=== PATIENT | male | born 1955 | race Caucasian/White ===

== ENCOUNTER 2018-06-12 09:37 | Inpatient (IN) ==
--- NOTE | 2018-06-12 10:11 | Emergency Department Note ---
ED Disposition Clinical Impression: COPD (chronic obstructive pulmonary disease) with acute bronchitis, Acute exacerbation of chronic obstructive airways disease, Hyponatremia Disposition: Admitted as Observation Condition on Discharge: Good Referrals: Elliott Stinson [Primary Care Provider] - Jamel Morin MD [Staff Physician] - - Critical Care Critical Care Time: No Attestation: On , the high probability of a clinically significant, sudden or life threatening deterioration of the following system(s) required my full and direct attention, intervention and personal management. The time I documented below is in addition to time spent performing reported procedures but includes the following listed in this critical care notation. Medical Decision Making - Ricco Inquiry Pt receiving controlled substance: No Ricco was queried for this patient: No Vital Signs: 06/12/18 09:48 06/12/18 10:30 06/12/18 10:38 Temperature 97.9 F Temperature Source Oral Pulse Rate 125 H Pulse Rate [Left Radial] 120 H Respiratory Rate 40 H Blood Pressure [Right Arm] 150/100 H 135/91 H Blood Pressure Mean [Right Arm] 116 105 Blood Pressure Source [Right Arm] Automatic Cuff Automatic Cuff Blood Pressure Position [Right Arm] Sitting 02 Sat by Pulse Oximetry 92 L 98 Oxygen Delivery Method Room Air Nasal Cannula Oxygen Flow Rate (LPM) 2 06/12/18 11:00 06/12/18 11:12 06/12/18 11:16 Temperature Temperature Source Pulse Rate Pulse Rate [Left Radial] 115 H Respiratory Rate 42 H Blood Pressure [Right Arm] 133/87 Blood Pressure Mean [Right Arm] 102 Blood Pressure Source [Right Arm] Automatic Cuff Blood Pressure Position [Right Arm] Sitting 02 Sat by Pulse Oximetry 97 94 L Oxygen Delivery Method Room Air Oxygen Flow Rate (LPM) - Lab Data Lab Results 06/12/18 09:52: WBC 7.0, RBC 4.91, Hgb 16.4, Hct 49.2, MCV 100.1 H, MCH 33.3 H, MCHC 33.3, RDW 12.9, Plt Count 231, MPV 8.3, Neut % (Auto) 74.0, Lymph % (Auto) 9.2 L, [place] % (Auto) 15.5 H, Eos % (Auto) 0.7, Baso % (Auto) 0.6, Neut # (Auto) 5.2, Lymph # (Auto) 0.6 L, [place] # (Auto) 1.1 H, Eos # (Auto) 0.1, Baso # (Auto) 0.0 06/12/18 09:52: Sodium 128 L, Potassium 4.2, Chloride 92 L, Carbon Dioxide 24, Anion Gap 16.2 H, BUN 9, Creatinine 0.73, Estimated Creat Clear 72, Estimated GFR 108, Est GFR ( Amer) 131, Glucose 129 H, Calcium 9.2, Troponin I < 0.02 06/12/18 09:52: Lactate 1.6 06/12/18 10:01: Specimen Source Right radial, O2 % 2lpm nc, ABG pH 7.44, ABG pCO2 34.3 L, ABG pO2 128.7 H, ABG HCO3 22.6, ABG Total CO2 23.7, ABG O2 Sa turation 99, ABG Base Excess -1.6, Wes Test Acceptable Result diagrams: 06/12/18 09:52 06/12/18 09:52 Orders (Tests/Meds): ED MEDICATIONS Generic Name Dose Route Start Last Admin Trade Name Freq PRN Reason Stop Dose Admin Acetaminophen 650 mg 06/12/18 12:06 Acetaminophen 325mg Tab PO 07/12/18 12:05 Q4HP PRN As Needed for Fever or Pain Atorvastatin Calcium 20 mg 06/13/18 09:00 Lipitor 20mg Tablet PO 07/13/18 08:59 DAILY NATALIYA Sodium Chloride 1,000 mls @ 125 mls/hr 06/12/18 12:15 Sod Chlor 0.9% 1000ml Bag IV 07/12/18 12:14 .Q8H NATALIYA Ondansetron HCl 4 mg 06/12/18 12:06 Zofran 4mg/2ml Vial IV 07/12/18 12:05 Q8HP PRN Nausea Discontinued Medications Generic Name Dose Route Start Last Admin Trade Name Freq PRN Reason Stop Dose Admin Albuterol/Ipratropium 3 ml 06/12/18 09:55 06/12/18 10:30 Duoneb 3ml [facility] 06/12/18 09:56 3 ml ONCE ONE Administration Albuterol/Ipratropium 3 ml 06/12/18 10:47 06/12/18 10:59 Duoneb 3ml [facility] 06/12/18 10:48 3 ml ONCE ONE Administration Prednisone 80 mg 06/12/18 10:20 06/12/18 10:46 Deltasone 20mg Tablet PO 06/12/18 10:21 80 mg ONCE ONE Administration ORDERS Category Date Time Status Influenza A&B Antigens, Rapid [Rapid Influenza A&B Lab 06/12/18 11:27 Ordered Antigens] Stat Blood Culture Stat Micro 06/12/18 09:52 Received General Adult HPI - General Chief complaint: Shortness of Breath/Dyspnea Stated complaint: SOA,Dehydration Time Seen by Provider: 06/12/18 10:00 Mode of Arrival: Ambulatory Limitations: No Limitations Description of Symptoms (Recalled from ER Triage Doc. by RN): to ed pt sent from dr stinson's office for eval due to sob. pt c/o sob starting approx 1 week ago progressively getting worse. +cough with yellow sputum and chest tightness. cpta none - History of Present Illness HPI narrative: cold symptoms x one week, now progressively worsening with chest symptoms. No fever, hemoptysis, but relates to purulent sputum. History of recurrent bronchitis, heavy smoking history, no hospitalizations he recalls for pneumonia. Onset (ago): week(s) (one) Location: head, chest Severity: moderate Relieving factors: none Exacerbating factors: none Associated symptoms: denies other symptoms, fever/chills, loss of appetite, malaise, shortness of breath. negative: headaches, syncope - Related Data Home Medications Medication Instructions Recorded Confirmed Atorvastatin Calcium [Atorvastatin 20 mg PO DAILY 06/12/18 06/12/18 20mg Tab] Lisinopril [Lisinopril 10mg Tab] 10 mg PO DAILY 06/12/18 06/12/18 Trazodone HCl 50 mg PO HS 06/12/18 06/12/18 Allergies Allergy/AdvReac Type Severity Reaction Status Date / Time cortisone [CORTISONE] Allergy Intermediate I-HIVES Verified 06/12/18 09:52 [facility] History I have reviewed the patient's past medical history: Yes - Social History Smoking Status: Current every day smoker Tobacco Type: cigarettes Alcohol Intake: never - Psychiatric History Expresses thoughts of harming self/others: None Suicide Plan Description: No Plan ROS Obtained: Yes All systems reviewed & no additional complaints - Constitutional Constitutional: Reports system reviewed and no additional complaints, except as docu, Reports body ache, Reports poor appetite, Reports lethargy, Reports malaise - Eyes Eyes: Reports system reviewed and no additional complaints, except as docu - ENT Ears, Nose, Mouth, and Throat: Reports system reviewed and no additional complaints, except as docu, Reports post nasal drip, Reports sinus pressure - Cardiovascular Cardiovascular: Reports system reviewed and no additional complaints, except as docu - Respiratory Respiratory: Yes chest congestion, Yes cough, Yes dyspnea, Yes dyspnea on exertion, Yes pain with cough - Gastrointestinal Gastrointestingal: Reports: system reviewed and no additional complaints, except as docu - Musculoskeletal Musculoskeletal: Reports system reviewed and no additional complaints, except as docu, Denies joint swelling, Denies muscle cramps - Integumentary/Breasts Skin/Breast: Reports system reviewed and no additional complaints, except as docu - Neurologic Neurologic: Reports system reviewed and no additional complaints, except as docu, Denies focal weakness, Denies syncope - Hematologic/Lymphatic Henatologic/Lymphatic: Reports system reviewed and no additional complaints, except as docu Physical Exam - General General appearance: alert, in distress, other (mild to moderate respiratory distress, speaks full sentences however) - Head Head exam: atraumatic - Eye Eye exam: Present: normal appearance - ENT ENT exam: Present: normal exam, normal oropharynx - Neck Neck exam: Present: normal inspection, full ROM - Chest Chest inspection: Present: symmetric chest wall rise - Respiratory Respiratory exam: Present: respiratory distress, wheezes, other (moderate diffuse wheezes, equal bilateral BS, no egophony) - Cardiovascular Cardiovascular exam: Present: regular rate, normal rhythm - Abdominal Exam Abdominal exam: Present: soft, normal bowel sounds. Absent: tenderness, guarding - Neurological Exam Neurological exam: Present: alert, oriented X3, CN II-XII intact - Skin Skin exam: Present: warm, dry, intact, normal color. Absent: rash, cyanosis, diaphoresis
[2018-06-12 10:15] LABS: Basophils % 0.6 % (0.1-2.0); Eosinophils # 0.1 K/mm3 (0.0-0.4); Eosinophils % 0.7 % (0.1-12.0); Hematocrit 49.2 % (42.0-52.0); Hemoglobin 16.4 g/dL (14.1-18.0); Lymphocytes # 0.6 K/mm3 (0.7-4.5); Lymphocytes % 9.2 % (10-50); Mean Corpuscular HGB Conc 33.3 g/dL (31.8-35.4); Mean Corpuscular Hemoglobin 33.3 pg (27.0-31.2); Mean Corpuscular Volume 100.1 fl (80-94); Mean Platelet Volume 8.3 fl (7.4-10.4); Monocytes # 1.1 K/mm3 (0.1-1.0); Monocytes % 15.5 % (1.7-9.3); Neutrophils # 5.2 K/mm3 (1.8-7.8); Platelet Count 231 K/mm3 (142-424); Red Blood Count 4.91 M/mm3 (4.60-6.20); Red Cell Distribution Width 12.9 % (11.5-17.5)
[2018-06-12 10:22] LABS: Anion Gap 16.2 mEq/L (5-15); Blood Urea Nitrogen 9 mg/dL (7-18); Calcium 9.2 mg/dL (8.5-10.1); Carbon Dioxide 24 mmol/L (21.0-32.0); Chloride 92 mmol/L (98-107); Glucose 129 mg/dL (74-106); Potassium 4.2 mmoL/L (3.5-5.1); Sodium 128 mmol/L (136-145)
[2018-06-12 10:33] LABS: ABG Base Excess -1.6 mmol/L (-2.4-2.3); ABG HCO3 22.6 mmhg (22.0-26.0); ABG Oxygen Saturation 99 % (90-100); ABG PCO2 34.3 mmhg (35.0-45.0); ABG PH 7.44 mmol/L (7.35-7.45); ABG PO2 128.7 mmhg (80-100); ABG TCO2 23.7 mmhg (23-27)
[2018-06-12 10:36] LABS: Allen's Test Acceptable; Oxygen 2lpm nc %
--- NOTE | 2018-06-12 14:08 | Pharmacy Consult Notes ---
[facility] Pharmacy VTE Monitoring - Patient Demographics Admission date: 06/12/18 Report Date: 06/12/18 Time: 14:07 Allergies/Adverse Reactions: Patient Allergies cortisone [CORTISONE] Allergy (Intermediate, Verified 06/12/18 09:52) I-ALBERT Height: 1.73 m Weight: 65.969 kg Patient Problems: Current Active Problems COPD (chronic obstructive pulmonary disease) with acute bronchitis (Acute) Acute exacerbation of chronic obstructive airways disease (Acute) Hyponatremia (Acute) - VTE Risk Labs: VTE Related Lab Results Hgb 16.4 g/dL (14.1-18.0) 06/12/18 09:52 Hct 49.2 % (42.0-52.0) 06/12/18 09:52 Plt Count 231 K/mm3 (142-424) 06/12/18 09:52 BUN 9 mg/dL (7-18) 06/12/18 09:52 Creatinine 0.73 mg/dL (0.70-1.30) 06/12/18 09:52 Estimated Creat Clear 72 mL/min (50-200) 06/12/18 09:52 Was VTE Risk Assessment Performed: Yes VTE Score: 3 VTE Risk Level: Low Risk Clinical Trial Participant: No - Prophylaxis VTE Prophylaxis Ordered?: Yes Types of VTE Prophylaxis: TEDS Knee High Location of Applied Device: Not Applicable
--- NOTE | 2018-06-12 17:41 | History & Physical Report ---
*Admission Date: 06/12/18 *Chief complaint: Cough and shortness of air *History of present illness: 63-year-old white male with history of COPD, secondary to tobacco use disorder, who has frequent exacerbations and is usually treated with intramuscular antibiotics and steroids. He began to be sick over the weekend but did not want to go to the doctor, and as a result did not get any kind of antibiotics or steroid therapy but became progressively more dyspneic and came to the emergency department earlier today. He was found to be dyspneic, wheezing, found to have significant COPD exacerbation that did not improve with supportive care in the emergency department. He is admitted to hospital because of multiple comorbid conditions and COPD exacerbation. [facility] History I have reviewed the patient's past medical history: Yes Medical History: Reports:: Hyperlipidemia, Hypertension Denies:: Cancer, Diabetes Mellitus Type 1, Diabetes Mellitus Type 2, Internal Pacemaker, MRSA Other Medical History: Reports: Sinus Problems Other Surgeries: No: Pacemaker Amputation: No Fractures: No - *Social History Educational Level: Attended College Smoking Status: Former smoker Tobacco Type: cigarettes Smoking End Date: 2017 Alcohol Intake: current Alcohol Intake Frequency:: 3 or more drinks per day Occupational Status: previously employed Housing: house Household Members: spouse - Psychiatric History Expresses thoughts of harming self/others: None Suicide Plan Description: No Plan *Family Hx:: Cancer, Hyperlipidemia, Hypertension Review of Systems - Review of Systems Review of systems:: pertinent systems reviewed and negative unless documented below - Constitutional Reports anorexia, Reports chills, Reports lack of energy - ENT Denies abnormal hearing, Denies bleeding gums, Denies difficulty swallowing - *Cardiovascular Reports shortness of breath, Reports shortness of breath with activity, Denies chest pain, Denies excessive sweating, Denies irregular heart rhythm, Denies leg swelling, Denies shortness of breath when lying down - *Respiratory Reports change in phlegm color, Reports chest congestion, Reports cough, Reports excessive phlegm production, Denies coughing up blood - *Gastrointestinal Denies abdominal pain, Denies difficulty swallowing, Denies feeling full early - *Genitourinary Denies difficulty urinating - *Musculoskeletal Reports abnormal walking, Denies decreased muscle mass, Denies back pain - *Neurologic Denies localized weakness, Denies fainting Meds Home Medications Medication Instructions Recorded Confirmed Type Atorvastatin Calcium [Atorvastatin 20 mg PO DAILY 06/12/18 06/12/18 History 20mg Tab] Lisinopril [Lisinopril 10mg Tab] 10 mg PO DAILY 06/12/18 06/12/18 History Trazodone HCl 50 mg PO HS 06/12/18 06/12/18 History Allergies Allergy/AdvReac Type Severity Reaction Status Date / Time cortisone [CORTISONE] Allergy Intermediate I-HIVES Verified 06/12/18 09:52 Exam Vital signs and Labs for Last 24 Hours: Temp Pulse Resp BP Pulse Ox 98.4 F 95 H 20 149/94 H 92 L 06/12/18 13:14 06/12/18 14:12 06/12/18 14:10 06/12/18 13:14 06/12/18 14:12 Laboratory Results - last 24 hr 06/12/18 09:52: WBC 7.0, RBC 4.91, Hgb 16.4, Hct 49.2, MCV 100.1 H, MCH 33.3 H, MCHC 33.3, RDW 12.9, Plt Count 231, MPV 8.3, Neut % (Auto) 74.0, Lymph % (Auto) 9.2 L, [place] % (Auto) 15.5 H, Eos % (Auto) 0.7, Baso % (Auto) 0.6, Neut # (Auto) 5.2, Lymph # (Auto) 0.6 L, [place] # (Auto) 1.1 H, Eos # (Auto) 0.1, Baso # (Auto) 0.0 06/12/18 09:52: Sodium 128 L, Potassium 4.2, Chloride 92 L, Carbon Dioxide 24, Anion Gap 16.2 H, BUN 9, Creatinine 0.73, Estimated Creat Clear 72, Estimated GFR 108, Est GFR ( Amer) 131, Glucose 129 H, Calcium 9.2, Troponin I < 0.02 06/12/18 09:52: Lactate 1.6 06/12/18 10:01: Specimen Source Right radial, O2 % 2lpm nc, ABG pH 7.44, ABG pCO2 34.3 L, ABG pO2 128.7 H, ABG HCO3 22.6, ABG Total CO2 23.7, ABG O2 Saturation 99, ABG Base Excess -1.6, Wes Test Acceptable I & O for Last 24 hours: Intake & Output 06/10/18 06/11/18 06/12/18 06/13/18 11:59 11:59 11:59 11:59 Intake Total 360 / 360 Balance 360 / 360 Weight 150 lb 145 lb 7 oz Narrative: Patient appears markedly older than his stated age, appears cachectic. Heavily bearded. Oropharynx dry but otherwise clear, no JVD. Lungs have crackles and rhonchi especially in the right middle and lower lung fi eld. Abdomen soft and nontender. Heart rate regular. No edema. Clubbing noted, no cyanosis. Patient is alert, oriented x3. Very pleasant and talkative. Assessment and Plan (1) Protein-calorie malnutrition, mild Current visit: Yes Status: Acute Category: Medical Code(s): E44.1 - Mild protein-calorie malnutrition Supportive care in hospital, this complicates his care. (2) Acute exacerbation of chronic obstructive airways disease Current visit: Yes Status: Acute Category: Medical Code(s): J44.1 - Chronic obstructive pulmonary disease with (acute) exacerbation Patient clearly has exacerbation of significant lung disease. I am very suspicious of a bacterial pathogen given his sputum production, add ceftriaxone/azithromycin therapy. (3) COPD (chronic obstructive pulmonary disease) with acute bronchitis Current visit: Yes Status: Acute Category: Medical Code(s): J44.0 - Chronic obstructive pulmonary disease with acute lower respiratory infection; J20.9 - Acute bronchitis, unspecified Treat as noted above, agree with IV steroids and nebulizers (4) Hyponatremia Current visit: Yes Status: Acute Category: Medical Code(s): E87.1 - Hypo- osmolality and hyponatremia Rehydrate. Follow labs tomorrow
[2018-06-13 06:45] LABS: Basophils % 0.1 % (0.1-2.0); Eosinophils % 0.5 % (0.1-12.0); Hematocrit 41.6 % (42.0-52.0); Lymphocytes # 0.4 K/mm3 (0.7-4.5); Mean Corpuscular HGB Conc 32.5 g/dL (31.8-35.4); Mean Corpuscular Hemoglobin 32.4 pg (27.0-31.2); Mean Corpuscular Volume 99.9 fl (80-94); Mean Platelet Volume 7.3 fl (7.4-10.4); Monocytes # 0.4 K/mm3 (0.1-1.0); Monocytes % 7.1 % (1.7-9.3); Neutrophils # 4.6 K/mm3 (1.8-7.8); Neutrophils % 84.2 % (37.0-80.0); Platelet Count 213 K/mm3 (142-424); Red Blood Count 4.16 M/mm3 (4.60-6.20); Red Cell Distribution Width 12.8 % (11.5-17.5); White Blood Count 5.5 K/mm3 (4.8-10.8)
[2018-06-13 07:01] LABS: Albumin Level 2.8 gm/dL (3.4-5.0); Albumin/Globulin Ratio 0.7 (1.1-1.8); Anion Gap 11.6 mEq/L (5-15); Bilirubin,Total 0.5 mg/dL (0.2-1.0); Calcium 8.3 mg/dL (8.5-10.1); Globulin 4.1 gm/dl (1.3-3.2); Potassium 3.6 mmoL/L (3.5-5.1); Total Protein,Serum 6.9 gm/dL (6.4-8.2)
[2018-06-13 07:34] LABS: Hemoglobin 13.2 g/dL (14.1-18.0)
--- NOTE | 2018-06-13 08:14 | Progress Note ---
Internal Medicine - PN: Subj *Date: 06/13/18 *Time: 08:13 Interval history: Patient states that he feels somewhat better. Was able to sleep a couple of hours through the night last night as his coughing improved. Reports sputum production is still an issue. Exam Vital signs and Labs for Last 24 Hours: Temp Pulse Resp BP Pulse Ox 98.7 F 89 20 153/85 H 96 06/13/18 07:28 06/13/18 07:28 06/13/18 04:15 06/13/18 07:28 06/13/18 07:35 Laboratory Results - last 24 hr 06/12/18 09:52: WBC 7.0, RBC 4.91, Hgb 16.4, Hct 49.2, MCV 100.1 H, MCH 33.3 H, MCHC 33.3, RDW 12.9, Plt Count 231, MPV 8.3, Neut % (Auto) 74.0, Lymph % (Auto) 9.2 L, [place] % (Auto) 15.5 H, Eos % (Auto) 0.7, Baso % (Auto) 0.6, Neut # (Auto) 5.2, Lymph # (Auto) 0.6 L, [place] # (Auto) 1.1 H, Eos # (Auto) 0.1, Baso # (Auto) 0.0 06/12/18 09:52: Sodium 128 L, Potassium 4.2, Chloride 92 L, Carbon Dioxide 24, Anion Gap 16.2 H, BUN 9, Creatinine 0.73, Estimated Creat Clear 72, Estimated GFR 108, Est GFR ( Amer) 131, Glucose 129 H, Calcium 9.2, Troponin I < 0.02 06/12/18 09:52: Lactate 1.6 06/12/18 10:01: Specimen Source Right radial, O2 % 2lpm nc, ABG pH 7.44, ABG pCO2 34.3 L, ABG pO2 128.7 H, ABG HCO3 22.6, ABG Total CO2 23.7, ABG O2 Saturation 99, ABG Base Excess -1.6, Wes Test Acceptable 06/13/18 06:22: WBC 5.5, RBC 4.16 L, Hgb 13.2 L D, Hct 41.6 L, MCV 99.9 H, MCH 32.4 H, MCHC 32.5, RDW 12.8, Plt Count 213, MPV 7.3 L, Neut % (Auto) 84.2 H, Lymph % (Auto) 8.0 L, [place] % (Auto) 7.1, Eos % (Auto) 0.5, Baso % (Auto) 0.1, Neut # (Auto) 4.6, Lymph # (Auto) 0.4 L, [place] # (Auto) 0.4, Eos # (Auto) 0.0, Baso # (Auto) 0.0 06/13/18 06:22: Sodium 134 L, Potassium 3.6, Chloride 100, Carbon Dioxide 26, Anion Gap 11.6, BUN 7, Creatinine 0.64 L, Estimated Creat Clear 70, Estimated GFR 126, Est GFR ( Amer) 152, Glucose 151 H, Calcium 8.3 L, Total Bilirubin 0.5, AST 33, ALT 68, Alkaline Phosphatase 65, Total Protein 6.9, Albumin 2.8 L, Globulin 4.1 H, Albumin/Globulin Ratio 0.7 L I & O for Last 24 hours: Intake & Output 06/10/18 06/11/18 06/12/18 06/13/18 11:59 11:59 11:59 11:59 Intake Total 3127 / 3127 Balance 3127 / 3127 Weight 150 lb 145 lb 7 oz Microbiology Reports for the Last 24 Hours: Microbiology 06/12/18 13:30 Sputum - Expectorated Sputum Gram Stain - Final 06/12/18 13:30 Sputum - Expectorated Sputum Sputum Culture - Preliminary Narrative: Patient is pleasant, responds to commands, alert and oriented. lungs have better air entry. Continues to have rhonchi and crackles in the right middle and lower lung field but overall improved. Heart rate regular without murmurs. No edema noted. Abdomen soft and nontender. Able to move all extremities well. Assessment and Plan (1) Protein-calorie malnutrition, mild Current visit: Yes Status: Acute Category: Medical Code(s): E44.1 - Mild protein-calorie malnutrition (2) Acute exacerbation of chronic obstructive airways disease Current visit: Yes Status: Acute Category: Medical Code(s): J44.1 - Chronic obstructive pulmonary disease with (acute) exacerbation (3) COPD (chronic obstructive pulmonary disease) with acute bronchitis Current visit: Yes Status: Acute Category: Medical Code(s): J44.0 - Chronic obstructive pulmonary disease with acute lower respiratory infection; J20.9 - Acute bronchitis, unspecified (4) Hyponatremia Current visit: Yes Status: Acute Category: Medical Code(s): E87.1 - Hypo-osmolality and hyponatremia - Assessment and plan all Dx Assessment and Plan for all problems:: Overall improved. Hyponatremia improving. Leukocytosis has improved. Continue current antibiotics, nebulizers and steroids. Probable discharge tomorrow depending on culture results.
[2018-06-14 07:20] LABS: Hematocrit 37.7 % (42.0-52.0); Lymphocytes # 0.5 K/mm3 (0.7-4.5); Lymphocytes % 7.6 % (10-50); Mean Corpuscular HGB Conc 31.8 g/dL (31.8-35.4); Mean Corpuscular Hemoglobin 32.2 pg (27.0-31.2); Mean Corpuscular Volume 101.3 fl (80-94); Mean Platelet Volume 7.5 fl (7.4-10.4); Monocytes # 0.4 K/mm3 (0.1-1.0); Neutrophils # 5.9 K/mm3 (1.8-7.8); Neutrophils % 86.4 % (37.0-80.0); Platelet Count 178 K/mm3 (142-424); Red Blood Count 3.72 M/mm3 (4.60-6.20); Red Cell Distribution Width 12.7 % (11.5-17.5); White Blood Count 6.9 K/mm3 (4.8-10.8)
[2018-06-14 07:27] LABS: Anion Gap 12.5 mEq/L (5-15); Potassium 3.5 mmoL/L (3.5-5.1)
[2018-06-14 07:29] LABS: Hypochromasia 1+; Lymphocytes % 7 % (10-50); Macrocytosis 1+; Monocytes % 1 % (2-9); Neutrophils % 79 % (42-76); Total Cells Counted 100
--- NOTE | 2018-06-14 07:42 | Discharge Summary ---
General - General Admission date:: 06/12/18 Discharge date: 06/14/18 HPI HPI: 63-year-old white male with history of COPD, secondary to tobacco use disorder, who has frequent exacerbations and is usually treated with intramuscular antibiotics and steroids. He began to be sick over the weekend but did not want to go to the doctor, and as a result did not get any kind of antibiotics or steroid therapy but became progressively more dyspneic and came to the emergency department earlier today. He was found to be dyspneic, wheezing, found to have significant COPD exacerbation that did [facility] improve [facility] He is admitted to hospital because of multiple comorbid conditions and COPD exacerbation. Hospital Course Hospital Course: Patient was admitted, placed on COPD medications with nebulizers, fluids and steroids intravenously, tolerated this well. Patient was also given antibiotics because of sputum production and infiltrate on chest x-ray. He did well with ceftriaxone and azithromycin. This morning he was doing much better, did not require oxygen felt much better and was discharged home. Plan will be to start Advair twice daily. Patient needs a maintenance inhaler because of chronic COPD with bronchitis, he also needs a new prescription for Ventolin inhaler which she has been out of for quite a while He will be placed on antibiotics, steroids and have close follow-up with regular physician. Objective Vital signs: Temp Pulse Resp BP Pulse Ox 98.4 F 80 16 138/77 96 06/14/18 07:24 06/14/18 07:24 06/14/18 07:24 06/14/18 07:24 06/14/18 07:24 Narrative: Patient is alert, pleasant, oriented x3. Oropharynx clear, heart rate regular without murmurs. Abdomen soft, no edema or clubbing. Lungs are clear with good air movement, minimal rhonchi in the right middle and lower lung field. Results Labs on day of discharge: Labs from last 24 hours 06/14/18 06/14/18 06/13/18 06:54 06:54 14:11 WBC 6.9 D RBC 3.72 L Hgb 12.0 L Hct 37.7 L MCV 101.3 H MCH 32.2 H MCHC 31.8 RDW 12.7 Plt Count 178 MPV 7.5 Neut % (Auto) 86.4 H Lymph % (Auto) 7.6 L [place] % (Auto) 6.0 Eos % (Auto) 0.0 L Baso % (Auto) 0.0 L Neut # (Auto) 5.9 Lymph # (Auto) 0.5 L [place] # (Auto) 0.4 Eos # (Auto) 0.0 Baso # (Auto) 0.0 Total Counted 100 Neutrophils % (Manual) 79 H Band Neutrophils % 13.0 H Lymphocytes % (Manual) 7 L Monocytes % (Manual) 1 L Platelet Estimate Normal Hypochromasia 1+ Macrocytosis 1+ Sodium 137 Potassium 3.5 Chloride 103 Carbon Dioxide 25 Anion Gap 12.5 BUN 7 Creatinine 0.73 Estimated Creat Clear 70 Estimated GFR 108 Est GFR ( Amer) 131 Glucose 183 H Calcium 8.0 L Influenza Type A Ag Negative Influenza Type B Ag Negative Preliminary micro results at discharge 06/12/18 13:30 Sputum Culture - Preliminary Sputum - Expectorated Sputum DS: Diagnosis - Discharge Diagnosis (1) Protein-calorie malnutrition, mild Status: Chronic (2) Acute exacerbation of chronic obstructive airways disease Status: Chronic (3) COPD (chronic obstructive pulmonary disease) with acute bronchitis Status: Acute (4) Hyponatremia Status: Acute Discharge Plan - Patient Discharge Instructions ACTIVITY: Continue current activity Patient Instructions: DI for Chronic Obstructive Pulmonary Disease, DI for Shortness of Breath - Follow up Plan Follow up with: Elliott Morales [Primary Care Provider] - 06/17/18 Disposition: Home, Self-Longterm Medications: Home Medications Medication Instructions Recorded Confirmed Type Atorvastatin Calcium [Atorvastatin 20 mg PO DAILY 06/12/18 06/12/18 History 20mg Tab] Lisinopril [Lisinopril 10mg Tab] 10 mg PO DAILY 06/12/18 06/12/18 History Trazodone HCl 50 mg PO HS 06/12/18 06/12/18 History Prescriptions/Medication Reconciliation: New Fluticasone/Salmeterol [Advair 100/50mcg diskus] 1 puffs IH BIDRT puff Cefdinir [Omnicef 300mg Capsule] 300 mg PO BID #14 cap predniSONE [Deltasone 20mg tablet] 20 mg PO BID 7 Days #14 tab Albuterol Sulfate [Proventil-HFA 90mcg/puff Inh] 2 puffs IH Q4HP PRN puff PRN Reason: Shortness Of Breath Azithromycin [Zithromax 250mg tab] 250 mg PO DIRECTED #6 tab Continue Trazodone HCl 50 mg PO HS Lisinopril [Lisinopril 10mg Tab] 10 mg PO DAILY Atorvastatin Calcium [Atorvastatin 20mg Tab] 20 mg PO DAILY
== END 2018-06-14 09:40 | disposition home or self-care (01) ==
LOC: ER 09:37 → 2ND 12:26
PROVIDERS: ADMIT Internal Medicine Adolescent Medicine; ATTEND Internal Medicine Adolescent Medicine

== ENCOUNTER → 2021-06-20 17:40 | Outpatient (CLI) | payer MEDICARE, OTHER, SELFPAY ==
[2021-06-20 19:13] LABS: Basophils # 0.1 K/mm3 (0-0.2); Basophils % 1.1 % (0.1-2.0); Eosinophils % 0.6 % (0.1-12.0); Hematocrit 47.5 % (42.0-52.0); Hemoglobin 15.5 g/dL (14.1-18.0); Lymphocytes # 1.6 K/mm3 (0.7-4.5); Lymphocytes % 27.1 % (10-50); Mean Corpuscular HGB Conc 32.7 g/dL (31.8-35.4); Mean Corpuscular Hemoglobin 33.9 pg (27.0-31.2); Mean Corpuscular Volume 103.6 fl (80-94); Mean Platelet Volume 8.9 fl (7.4-10.4); Monocytes # 0.7 K/mm3 (0.1-1.0); Monocytes % 11.6 % (1.7-9.3); Neutrophils # 3.5 K/mm3 (1.8-7.8); Neutrophils % 59.6 % (37.0-80.0); Platelet Count 280 K/mm3 (142-424); Red Blood Count 4.59 M/mm3 (4.60-6.20); Red Cell Distribution Width 13.2 % (11.5-17.5); Reticulocyte % (Auto) 1.8 % (0.9-3.2); White Blood Count 5.8 K/mm3 (4.8-10.8)
[2021-06-20 19:52] LABS: Alanine Aminotransferase 78 U/L (12-78); Albumin Level 4.3 g/dl (3.5-5.0); Albumin/Globulin Ratio 1.7 (1.1-1.8); Alkaline Phosphatase 64 U/L (38-126); Anion Gap 9.9 mEq/L (5-15); Aspartate Amino Transferase 77 U/L (17-59); Bilirubin,Total 0.5 mg/dl (0.2-1.3); Blood Urea Nitrogen 8 mg/dl (9-20); Calcium 8.8 mg/dl (8.4-10.2); Carbon Dioxide 28 mmol/L (22.0-30.0); Chloride 102 mmol/L (98-107); Cholesterol 191 mg/dl (140-200); Estimated Glomerular Filt Rate 96 ml/min (>60); GFR (African American) 117 ML/MIN (>60); Globulin 2.5 g/dL (1.3-3.2); Glucose 101 mg/dl (74-100); Potassium 3.9 mmoL/L (3.5-5.1); Sodium 136 mmol/L (136-145); Total Protein,Serum 6.8 g/dl (6.3-8.2); Triglycerides 38 mg/dl (30-150); VLDL Cholesterol 8 mg/dL (0-40)
[2021-06-20 20:03] LABS: Direct LDL Cholesterol 59.94 mg/dL (100-129)
[2021-06-20 20:04] LABS: Chol/HDL Ratio 1.6 (1-3.5); HDL Cholesterol 121 mg/dl (40-60)
[2021-06-20 20:59] LABS: Vitamin B12 376 pg/mL (239-931)
[2021-06-20 21:01] LABS: Folate 6.66 ng/mL
== END ==
PROVIDERS: Visit Provider Internal Medicine
DX: I25.10 Atherosclerotic heart disease of native coronary artery without angina pectoris (principal); I10 Essential (primary) hypertension; E11.59 Type 2 diabetes mellitus with other circulatory complications; E11.42 Type 2 diabetes mellitus with diabetic polyneuropathy; E78.5 Hyperlipidemia, unspecified; K86.3 Pseudocyst of pancreas; D75.89 Other specified diseases of blood and blood-forming organs; J44.9 Chronic obstructive pulmonary disease, unspecified; M10.9 Gout, unspecified
CPT/HCPCS: 80053; 80061; 82607; 82746; 85025; 85044

== ENCOUNTER → 2021-12-03 10:41 | Outpatient (CLI) | payer MEDICARE, OTHER, SELFPAY ==
--- NOTE | 2021-12-03 10:52 | XR_ITS ---
FINAL REPORT CLINICAL HISTORY: COPD. SMOKER, COMPARISON: June 12, 2018 FINDINGS: PA and lateral views of the chest were obtained. The cardiac and mediastinal silhouettes are within normal limits. There is a granulomatous disease and emphysema. Blunting of the costophrenic angles favors pleural scarring. Small effusions cannot be excluded. There is no pneumothorax. No acute osseous abnormality is identified. IMPRESSION: No radiographic evidence of acute cardiac or pulmonary disease. Reviewed, Interpreted and Dictated by Kylie Blas MD Transcribed by Acosta Lawrence Authenticated by Kylie Blas MD on 12/03/2021 12:10:41 PM [facility]
== END ==
PROVIDERS: PCP Internal Medicine; Visit Provider Internal Medicine
DX: R04.2 Hemoptysis (principal); J44.1 Chronic obstructive pulmonary disease with (acute) exacerbation; J40 Bronchitis, not specified as acute or chronic; Z72.0 Tobacco use
CPT/HCPCS: 71046

== ENCOUNTER → 2021-12-19 11:39 | Outpatient (CLI) | payer MEDICARE, OTHER, SELFPAY ==
[2021-12-19 12:58] LABS: Alanine Aminotransferase 33 U/L (12-78); Albumin Level 3.6 g/dl (3.5-5.0); Albumin/Globulin Ratio 1.3 (1.1-1.8); Alkaline Phosphatase 66 U/L (38-126); Anion Gap 10.2 mEq/L (5-15); Aspartate Amino Transferase 33 U/L (17-59); Bilirubin,Total 0.3 mg/dl (0.2-1.3); Blood Urea Nitrogen 10 mg/dl (9-20); Calcium 8.5 mg/dl (8.4-10.2); Carbon Dioxide 26 mmol/L (22.0-30.0); Chloride 106 mmol/L (98-107); Chol/HDL Ratio 2.5 (1-3.5); Cholesterol 225 mg/dl (140-200); Estimated Glomerular Filt Rate 112 ml/min (>60); GFR (African American) 136 ML/MIN (>60); Globulin 2.7 g/dL (1.3-3.2); Glucose 109 mg/dl (74-100); HDL Cholesterol 89 mg/dl (40-60); Potassium 4.2 mmoL/L (3.5-5.1); Sodium 138 mmol/L (136-145); Total Protein,Serum 6.3 g/dl (6.3-8.2); Triglycerides 56 mg/dl (30-150); VLDL Cholesterol 11 mg/dL (0-40)
[2021-12-19 13:11] LABS: Direct LDL Cholesterol 102.92 mg/dL (100-129)
[2021-12-19 13:30] LABS: Prostate Specific Ag Screen 1.4 ng/ml (0.0-4.0)
== END ==
PROVIDERS: PCP Internal Medicine; Visit Provider Internal Medicine
DX: I10 Essential (primary) hypertension (principal); E78.5 Hyperlipidemia, unspecified; J44.9 Chronic obstructive pulmonary disease, unspecified; F17.209 Nicotine dependence, unspecified, with unspecified nicotine-induced disorders; N40.1 Benign prostatic hyperplasia with lower urinary tract symptoms; Z12.5 Encounter for screening for malignant neoplasm of prostate
CPT/HCPCS: 80053; 80061; G0103

== ENCOUNTER → 2022-06-21 14:06 | Outpatient (CLI) | payer MEDICARE, OTHER, SELFPAY ==
[2022-06-21 15:02] LABS: Basophils % 0.7 % (0.1-2.0); Eosinophils # 0.1 K/mm3 (0.0-0.4); Eosinophils % 1.3 % (0.1-12.0); Hematocrit 49.8 % (42.0-52.0); Hemoglobin 16.3 g/dL (14.1-18.0); Lymphocytes # 1.9 K/mm3 (0.7-4.5); Lymphocytes % 31.9 % (10-50); Mean Corpuscular HGB Conc 32.7 g/dL (31.8-35.4); Mean Corpuscular Hemoglobin 33.3 pg (27.0-31.2); Mean Platelet Volume 9.5 fl (7.4-10.4); Monocytes # 0.6 K/mm3 (0.1-1.0); Monocytes % 10.3 % (1.7-9.3); Neutrophils # 3.3 K/mm3 (1.8-7.8); Neutrophils % 55.8 % (37.0-80.0); Platelet Count 338 K/mm3 (142-424); Red Blood Count 4.88 M/mm3 (4.60-6.20); White Blood Count 5.9 K/mm3 (4.8-10.8)
[2022-06-21 15:30] LABS: Alanine Aminotransferase 36 U/L (12-78); Albumin Level 4.4 g/dl (3.5-5.0); Albumin/Globulin Ratio 1.8 (1.1-1.8); Alkaline Phosphatase 90 U/L (38-126); Anion Gap 16.4 mEq/L (5-15); Aspartate Amino Transferase 51 U/L (17-59); Bilirubin,Total 0.7 mg/dl (0.2-1.3); Blood Urea Nitrogen 9 mg/dl (9-20); Calcium 9.1 mg/dl (8.4-10.2); Carbon Dioxide 23 mmol/L (22.0-30.0); Chloride 101 mmol/L (98-107); Chol/HDL Ratio 1.6 (1-3.5); Cholesterol 168 mg/dl (140-200); Estimated Glomerular Filt Rate 96 ml/min (>60); GFR (African American) 116 ML/MIN (>60); Globulin 2.5 g/dL (1.3-3.2); Glucose 82 mg/dl (74-100); HDL Cholesterol 107 mg/dl (40-60); Potassium 4.4 mmoL/L (3.5-5.1); Sodium 136 mmol/L (136-145); Total Protein,Serum 6.9 g/dl (6.3-8.2); Triglycerides 55 mg/dl (30-150); VLDL Cholesterol 11 mg/dL (0-40)
[2022-06-21 15:41] LABS: Direct LDL Cholesterol 49.36 mg/dL (100-129)
== END ==
PROVIDERS: PCP Internal Medicine; Visit Provider Internal Medicine
DX: I10 Essential (primary) hypertension (principal); E78.5 Hyperlipidemia, unspecified; J44.9 Chronic obstructive pulmonary disease, unspecified; F17.209 Nicotine dependence, unspecified, with unspecified nicotine-induced disorders
CPT/HCPCS: 80053; 80061; 85025

== ENCOUNTER → 2022-12-20 13:18 | Outpatient (CLI) | payer MEDICARE, OTHER, SELFPAY ==
[2022-12-20 16:45] LABS: Alanine Aminotransferase 95 U/L (12-78); Albumin Level 4.5 g/dl (3.5-5.0); Albumin/Globulin Ratio 1.7 (1.1-1.8); Alkaline Phosphatase 70 U/L (38-126); Anion Gap 15.2 mEq/L (5-15); Aspartate Amino Transferase 127 U/L (17-59); Bilirubin,Total 0.8 mg/dl (0.2-1.3); Blood Urea Nitrogen 6 mg/dl (9-20); Calcium 8.5 mg/dl (8.4-10.2); Carbon Dioxide 25 mmol/L (22.0-30.0); Chloride 100 mmol/L (98-107); Cholesterol 169 mg/dl (140-200); Estimated Glomerular Filt Rate 112 ml/min (>60); GFR (African American) 136 ML/MIN (>60); Globulin 2.7 g/dL (1.3-3.2); Glucose 116 mg/dl (74-100); Potassium 4.2 mmoL/L (3.5-5.1); Sodium 136 mmol/L (136-145); Total Protein,Serum 7.2 g/dl (6.3-8.2); Triglycerides 34 mg/dl (30-150); VLDL Cholesterol 7 mg/dL (0-40)
[2022-12-20 16:56] LABS: Chol/HDL Ratio 1.1 (1-3.5); HDL Cholesterol 152 mg/dl (40-60)
[2022-12-20 16:57] LABS: Direct LDL Cholesterol < 30.00 mg/dL (100-129)
[2022-12-20 17:16] LABS: Prostate Specific Ag Screen 0.9 ng/ml (0.0-4.0)
== END ==
PROVIDERS: PCP Internal Medicine; Visit Provider Internal Medicine
DX: I10 Essential (primary) hypertension (principal); J44.9 Chronic obstructive pulmonary disease, unspecified; E78.5 Hyperlipidemia, unspecified; Z12.5 Encounter for screening for malignant neoplasm of prostate
CPT/HCPCS: 80053; 80061; G0103

== ENCOUNTER → 2023-02-14 10:34 | Outpatient (CLI) | payer MEDICARE, OTHER, SELFPAY ==
--- NOTE | 2023-02-14 10:48 | XR_ITS ---
FINAL REPORT CLINICAL HISTORY: SOA FINDINGS: TWO-VIEW CHEST The heart size is normal. The mediastinum is normal. The lungs are hyperinflated consistent with COPD. There is no pneumothorax. IMPRESSION: No acute cardiopulmonary process. Reviewed, Interpreted and Dictated by Herber Pritchett III, MD Transcribed by Sowmya Baez Authenticated and [facility]
[2023-02-14 10:53] LABS: Basophils % 0.8 % (0.1-2.0); Eosinophils # 0.1 K/mm3 (0.0-0.4); Eosinophils % 2.1 % (0.1-12.0); Hematocrit 47.6 % (42.0-52.0); Hemoglobin 15.7 g/dL (14.1-18.0); Lymphocytes # 1.2 K/mm3 (0.7-4.5); Lymphocytes % 21.6 % (10-50); Mean Corpuscular HGB Conc 32.9 g/dL (31.8-35.4); Mean Corpuscular Volume 100.2 fl (80-94); Mean Platelet Volume 7.6 fl (7.4-10.4); Monocytes # 0.5 K/mm3 (0.1-1.0); Monocytes % 9.1 % (1.7-9.3); Neutrophils # 3.7 K/mm3 (1.8-7.8); Neutrophils % 66.4 % (37.0-80.0); Platelet Count 233 K/mm3 (142-424); Red Blood Count 4.75 M/mm3 (4.60-6.20); White Blood Count 5.6 K/mm3 (4.8-10.8)
[2023-02-14 11:04] LABS: Alanine Aminotransferase 50 U/L (12-78); Albumin Level 4.7 g/dl (3.5-5.0); Albumin/Globulin Ratio 1.5 (1.1-1.8); Alkaline Phosphatase 77 U/L (38-126); Anion Gap 12.4 mEq/L (5-15); Aspartate Amino Transferase 63 U/L (17-59); Blood Urea Nitrogen 5 mg/dl (9-20); Calcium 8.7 mg/dl (8.4-10.2); Carbon Dioxide 25 mmol/L (22.0-30.0); Chloride 102 mmol/L (98-107); Estimated Glomerular Filt Rate 112 ml/min (>60); GFR (African American) 136 ML/MIN (>60); Globulin 3.2 g/dL (1.3-3.2); Glucose 108 mg/dl (74-100); Potassium 4.4 mmoL/L (3.5-5.1); Sodium 135 mmol/L (136-145); Total Protein,Serum 7.9 g/dl (6.3-8.2)
--- NOTE | 2023-02-14 11:04 | ECG_ITS ---
APPROVED REPORT Exam: Resting ECG HR:87 bpm ECG Measurements Heart Rate 87 AXES WA 182 P 75 QRSd 95 QRS 10 QT 361 T 46 QTc 405 Conclusion SINUS RHYTHM NORMAL ECG UNCONFIRMED REPORT Electronically signed by : Jamel Morin MD 02/14/2023 17:40:31
[2023-02-14 11:16] LABS: Hemoglobin A1C 5.3 % (4.0-6.0)
[2023-02-14 12:01] LABS: Troponin I < 0.01 ng/ml (0.00-0.034)
== END ==
PROVIDERS: PCP Internal Medicine; Visit Provider Internal Medicine
DX: I10 Essential (primary) hypertension (principal); R73.01 Impaired fasting glucose; R55 Syncope and collapse; J44.9 Chronic obstructive pulmonary disease, unspecified
CPT/HCPCS: 36415; 71046; 80053; 83036; 84484; 85025; 93005

== ENCOUNTER → 2023-02-17 09:54 | Outpatient (CLI) | payer MEDICARE, OTHER, SELFPAY ==
--- NOTE | 2023-02-17 09:58 | CA_ITS ---
APPROVED REPORT EXAM: Comprehensive 2D, Doppler, and color-flow Echocardiogram Display Associate: Marah Nesbitt RVT Ht: 5 ft 8 in Wt: 178lbs BSA: 1.94 BP: 149/94 mmHg Indications: Dyspnea 2D Dimensions LVOT 2.14 cm (M/F) 1.5-2.5 LA Volume 31.90 mL LA Volume Index 16.36 mL/m2 (M/F) 16-34 M-Mode Dimensions RVDd 1.23 cm (0.9-2.6) LA Diam 3.47 cm (1.9-4.0) LVDd 5.72 cm (3.5-5.7) Ao Diam 3.33 cm (2.0-3.7) LVDs 4.15 cm (3.5-5.7) IVSd 0.85 cm (0.6-1.1) PWd 0.72 cm (0.6-1.1) EF (Teich) 52.60% FS 27.40% EDV (Teich) 161.30 mL TAPSE 2.56 (<1.7) ESV (Teich) 76.40 mL LV Diastology E Decel Time 150.00 (160-240 msec) E/A Ratio 0.5 MED E' 8.10 (< 7 cm/sec) E'/MED E' Ratio 6.98 (>14) LAT E' 7.80 (<10 cm/sec) E/LAT E' Ratio 7.24 (>14) Aortic Valve AO Peak GR. 5.70 mmHg Mitral Valve MV E Max Tejinder. 57.00 (40-130 cm/s) MV A Velocity 105.00 (40-130 cm/s) E/A Ratio 0.54 MV Decel. Time 150.00 (160-240 ms) MV PHT 44.00 ms Pulmonary Valve PV Peak Velocity 70.00 (50-150 cm/s) Tricuspid Valve TR P. Velocity 291.00 cm/s RAP Estimate 10.00 mmHg RVSP 44.00 mmHg Left Ventricle The left ventricle is normal size. The left ventricular systolic function is normal. The left ventricular ejection fraction is within the normal range. There is increased LV wall thickness. There is moderate hypokinesis in the lateral, inferior, and inferolateral LV murray. The left ventricular diastolic function is normal. LVEF is 55%. Right Ventricle The right ventricle is normal size. The right ventricular systolic function is normal. There is increased RV wall thickness. Atria The left atrium size is normal. The right atrium size is normal. There is no Doppler evidence of interatrial shunt. Aortic Valve The aortic valve is opening well. There is no aortic valvular stenosis. No aortic regurgitation is present. Mitral Valve The mitral valve is normal in structure. No evidence of mitral valve stenosis. Trace mitral regurgitation. Tricuspid Valve The tricuspid valve leaflets are thin and pliable. Mild tricuspid regurgitation. RVSP is 25 mmHg + RA pressure Pulmonic Valve The pulmonary valve is normal in structure. Trace pulmonic regurgitation. Great Vessels The aortic root is normal in size. The visualized segment of the ascending aorta is normal in size. IVC is normal in size and collapses >50% with inspiration. Pericardium There is trivial pericardial effusion. Other Information Study Quality: Fair Conclusion Normal biventricular systolic function. Hypokinesis of the inferior, lateral, and inferolateral LV murray. No significant valvular disease. Electronically signed by : Jess Ventura, 02/17/2023 21:10:00
== END ==
PROVIDERS: PCP Internal Medicine; Visit Provider Internal Medicine
DX: R55 Syncope and collapse (principal)
CPT/HCPCS: 93225; 93226; 93306

== ENCOUNTER 2023-03-07 07:52 | Day surgery (SDC) | payer MEDICARE, OTHER, SELFPAY ==
[2023-03-07] VITALS (15 sets, daily range): BP systolic 126–175; BP diastolic 64–107; PULSE 73–92; RESP 16–22; O2SAT 93–98; BMI 27.0
--- NOTE | 2023-03-07 | CA_ITS ---
FINAL REPORT TECHNIQUE: Color Doppler, duplex Doppler and cook scale sonography of the bilateral neck arterial vasculature was performed. Velocities were measured in the carotid arteries. Stenosis evaluation based on the validated velocity criteria. CLINICAL HISTORY: bruit, smoker, cad, syncope FINDINGS: The peak systolic velocity of the right common carotid artery is 76 cm/s. The peak systolic velocity of the right internal carotid artery is 173 cm/s and end diastolic velocity 54 cm/s. The ICA/CCA ratio is 2.6. A moderate amount of plaque is present. The right external carotid artery is patent. The right vertebral artery is patent with antegrade flow. The peak systolic velocity of the left common carotid artery is 110 cm/s. The peak systolic velocity of the left internal carotid artery is 79 cm/s and end diastolic velocity 25 cm/s. The ICA/CCA ratio is 0.8. A moderate amount of plaque is present. The left external carotid artery is patent.The left vertebral artery is patent with antegrade flow. IMPRESSION: Less than 50% bilateral carotid stenoses. Bilateral patent vertebral arteries with antegrade flow. If indicated, CTA or MRA could further evaluate. Reviewed, Interpreted and Dictated by Ciro Jorgensen MD Transcribed by Sowmya Baez Authenticated and [facility]
--- NOTE | 2023-03-07 | IR_ITS ---
APPROVED REPORT Patient Location: Outpatient PROCEDURES Left heart catheterization Left ventriculogram Selective coronary angiogram INDICATION Suspected coronary disease, Syncope, Angina pectoris, Risk factors for coronary disease Informed consent was obtained prior to the procedure. COMPLICATIONS None Estimated Blood Loss: Less than 10 mls TECHNIQUE One percent lidocaine used to anesthetize the right anterior aspect of the wrist. The right radial artery was accessed via the Seldinger technique. A 6 Irish sheath was placed in the right radial artery. 2.5 mg of Verapamil, 800 mcg of nitroglycerin, 1mg Lidocaine and 5000 U Heparin were given through the arterial sheath. The papa catheter was also used to perform left heart catheterization, left ventriculogram and selective coronary angiogram. At the end of the procedure the sheath was removed good hemostasis was achieved using Traclet band, patient was transferred to the postop holding area in stable condition. ANGIOGRAPHIC RESULTS The left main artery Normal The left anterior descending artery Is proximally normal has a smooth mid vessel 20% stenosis which extends into the first diagonal artery The circumflex artery Nondominant with mild 10% luminal irregularities The right coronary artery Dominant with 10% luminal irregularities The MEDRANO ventriculogram reveals Normal 65% The left ventricular end-diastolic pressure 10 mmHg IMPRESSION Mild nonflow limiting coronary disease Normal ejection fraction Normal left ventricular end-diastolic pressure PLAN 1. Risk factor modification 2. Valuation of noncardiac symptoms Electronically signed by : Eric Valladares MD 03/07/2023 09:56:09
[2023-03-07 08:31] LABS: Basophils % 0.7 % (0.1-2.0); Eosinophils # 0.1 K/mm3 (0.0-0.4); Eosinophils % 1.3 % (0.1-12.0); Hematocrit 46.4 % (42.0-52.0); Hemoglobin 15.4 g/dL (14.1-18.0); Lymphocytes # 1.6 K/mm3 (0.7-4.5); Lymphocytes % 33.1 % (10-50); Mean Corpuscular HGB Conc 33.1 g/dL (31.8-35.4); Mean Corpuscular Hemoglobin 33.6 pg (27.0-31.2); Mean Corpuscular Volume 101.5 fl (80-94); Mean Platelet Volume 7.9 fl (7.4-10.4); Monocytes # 0.5 K/mm3 (0.1-1.0); Monocytes % 10.8 % (1.7-9.3); Neutrophils # 2.6 K/mm3 (1.8-7.8); Platelet Count 237 K/mm3 (142-424); Red Blood Count 4.58 M/mm3 (4.60-6.20); Red Cell Distribution Width 12.9 % (11.5-17.5); White Blood Count 4.7 K/mm3 (4.8-10.8)
[2023-03-07 08:38] LABS: Chloride 101 mmol/L (98-107); Potassium 4.4 mmoL/L (3.5-5.1); Sodium 133 mmol/L (136-145)
[2023-03-07 08:41] LABS: Anion Gap 15.4 mEq/L (5-15); Blood Urea Nitrogen 4 mg/dl (9-20); Calcium 8.8 mg/dl (8.4-10.2); Carbon Dioxide 21 mmol/L (22.0-30.0); Creatinine Clearance Estimated 81 mL/min (50-200); Estimated Glomerular Filt Rate 112 ml/min (>60); GFR (African American) 136 ML/MIN (>60); Glucose 99 mg/dl (74-100)
== END 2023-03-07 13:10 | disposition home or self-care (01) ==
PROVIDERS: PCP Internal Medicine; Visit Provider Internal Medicine
DX: I25.10 Atherosclerotic heart disease of native coronary artery without angina pectoris (principal); I65.23 Occlusion and stenosis of bilateral carotid arteries; I10 Essential (primary) hypertension; Z79.899 Other long term (current) drug therapy
CPT/HCPCS: 80048; 85025; 93458; 93880; 99152; C1725; C1769; J1644; Q9967

== ENCOUNTER → 2023-06-23 09:32 | Outpatient (CLI) | payer MEDICARE, OTHER, SELFPAY ==
--- NOTE | 2023-06-23 09:36 | XR_ITS ---
FINAL REPORT TECHNIQUE: 5 views CLINICAL HISTORY: LUMBAR STRAIN FINDINGS: There is no fracture present. There is mild loss of height with endplate sclerosis. Endplate osteophytes are seen at L2-3, L3-4 and L4-5. Dense vascular calcification is noted in the iliac arteries. IMPRESSION: Degenerative change without acute bony abnormality. Reviewed, Interpreted and Dictated by Ciro Jorgensen MD Transcribed by Olimpia Mancilla Authenticated and [facility][1]
== END ==
PROVIDERS: PCP Internal Medicine; Visit Provider Internal Medicine
DX: S33.5XXA Sprain of ligaments of lumbar spine, initial encounter (principal)
CPT/HCPCS: 72110

== ENCOUNTER → 2023-06-23 12:41 | Outpatient (CLI) | payer MEDICARE, OTHER, SELFPAY ==
[2023-06-23 13:36] LABS: Basophils % 0.4 % (0.1-2.0); Eosinophils % 0.7 % (0.1-12.0); Hematocrit 49.4 % (42.0-52.0); Hemoglobin 16.7 g/dL (14.1-18.0); Lymphocytes # 1.6 K/mm3 (0.7-4.5); Lymphocytes % 26.2 % (10-50); Mean Corpuscular HGB Conc 33.8 g/dL (31.8-35.4); Mean Corpuscular Hemoglobin 34.3 pg (27.0-31.2); Mean Corpuscular Volume 101.6 fl (80-94); Mean Platelet Volume 8.6 fl (7.4-10.4); Monocytes # 0.7 K/mm3 (0.1-1.0); Neutrophils # 3.7 K/mm3 (1.8-7.8); Neutrophils % 60.6 % (37.0-80.0); Platelet Count 264 K/mm3 (142-424); Red Blood Count 4.86 M/mm3 (4.60-6.20); Red Cell Distribution Width 12.8 % (11.5-17.5); White Blood Count 6.2 K/mm3 (4.8-10.8)
[2023-06-23 13:58] LABS: Chloride 97 mmol/L (98-107); Sodium 134 mmol/L (136-145)
[2023-06-23 14:00] LABS: Blood Urea Nitrogen 10 mg/dl (9-20); Estimated Glomerular Filt Rate 96 ml/min (>60); GFR (African American) 116 ML/MIN (>60)
[2023-06-23 14:01] LABS: Alanine Aminotransferase 50 U/L (12-78); Albumin Level 4.5 g/dl (3.5-5.0); Albumin/Globulin Ratio 1.6 (1.1-1.8); Alkaline Phosphatase 123 U/L (38-126); Aspartate Amino Transferase 60 U/L (17-59); Carbon Dioxide 29 mmol/L (22.0-30.0); Cholesterol 170 mg/dl (140-200); Globulin 2.9 g/dL (1.3-3.2); Glucose 93 mg/dl (74-100); Total Protein,Serum 7.4 g/dl (6.3-8.2); Triglycerides 40 mg/dl (30-150); VLDL Cholesterol 8 mg/dL (0-40)
[2023-06-23 14:11] LABS: Chol/HDL Ratio 1.6 (1-3.5); HDL Cholesterol 109 mg/dl (40-60)
[2023-06-23 14:12] LABS: Direct LDL Cholesterol 52.14 mg/dL (100-129)
== END ==
PROVIDERS: PCP Internal Medicine; Visit Provider Internal Medicine
DX: I10 Essential (primary) hypertension (principal); E78.5 Hyperlipidemia, unspecified; J44.9 Chronic obstructive pulmonary disease, unspecified; K86.3 Pseudocyst of pancreas; K80.20 Calculus of gallbladder without cholecystitis without obstruction; D75.89 Other specified diseases of blood and blood-forming organs; R04.2 Hemoptysis; N40.1 Benign prostatic hyperplasia with lower urinary tract symptoms
CPT/HCPCS: 72110; 80053; 80061; 85025

== ENCOUNTER 2023-08-15 15:00 | Outpatient (RCR) | payer MEDICARE, OTHER, SELFPAY ==
--- NOTE | 2023-07-15 14:47 | HMH.PTOPEV ---
PT Outpatient Evaluation Rehab PT Outpatient Evaluation Start: 07/15/23 14:26 Freq: Status: Active Protocol: Document 07/15/23 14:28 JER (Rec: 07/15/23 14:47 JER [id number]) E-signed By Gigi Jimenez, PT Outpatient Therapy Subjective History Subjective History Patient reports sub-acute LBP without radicular symptoms starting 06/07/23. Patient reports that he was lifting a trailer hitch when he felt a pop in his lumbar spine. Pain specific to R QL musculature. Patient does report a fall landing on his buttocks approx 4 months ago. Most recent imaging indicates degenerative change of L 2/3, 3/4 and 4/5. Comorbidities include hx of HTN, HL COPD and L elbow ORIF. New diagnosis of cancer in past 12 No months? Chief Complaint Pain,Stiff Symptom Type Sharp Symptoms Relieved By Rest/Positioning,Prescription Meds Symptoms Aggravated By Standing,Bending/Stooping, Physical Activity,Walking, Lifting Prior Functional Limitations None Current Functional Limitations Lifting,Housework,Sleeping, Standing,Walking,Bending/ Stooping Symptom Description Constant but Variable Level of pain today (0-10) 5 Pain scale - at its best (0-10) 3 Pain scale - at its worst (0-10) 8 Lumbopelvic Eval Posture Thoracic Spine Posture Standing Position Increased Kyphosis Lumbar Spine Posture Standing Position Decreased Lordosis Assistive device Assistive Devices None / NA Palapation tenderness right paraspinal tenderness Yes: T10-L5 3/4 buttock tenderness Yes: upper gluteal mm 3/4 Accessory Movement L2 right L3 right L4 right L5 right S1 right Range of Motion Lumbar Spine Active Flexion Range of 54 Motion (degrees) Lumbar Spine Active Extension Range of 10 Motion (degrees) Left Lumbar Spine Lateral Flexion Active 18 Range of Motion (degrees) Right Lumbar Spine Lateral Flexion 10 Active Range of Motion (degrees) Lumbar Spine ROM Limitations Soft Tissue Tightness,Bony Restriction Manual Muscle Test Bilateral Knee Extension Strength Grade 5 Normal Knee Flexion Strength Grade 5 Normal Hip Flexion Strength Grade 5 Normal Extensor Hallucis Longus Strength Grade 5 Normal Ankle Dorsiflexion Strength Grade 5 Normal Gastronemius/Soleus Strength Grade 5 Normal Altered Sensation Comment All WNL Special Tests Hip Lj (STUART) Test Positive Left,Positive Right Hip Mohan Test Positive Left,Positive Right Hip Piriformis Test Positive Left,Positive Right Sciatic Nerve Tension Test Negative Left,Positive Right Roderick Test Positive Sacroiliac Joint Compression Test Negative Left,Positive Right Sacroiliac Joint Distraction Test Negative Left,Positive Right Oswestry Index Section 1 Pain Intensity The pain comes and goes and is moderate Section 2 Personal Care (Washing,Dresing) change my way of washing or dressing in order to avoid pain Section 3 Lifting I can only lift very light weights at most Section 4 Walking I cannot walk at all without increasing pain Section 5 Sitting Pain prevents me from sitting for more than one hour Section 6 Standing I cannot stand more than 10 minutes without increasing pain Section 7 Sleeping Because of pain, my normal nights sleep is less than 2 hours sleep Section 8 Social Life My social life is normal but increases the degree of pain Section 9 Traveling I get extra pain while traveling, but it does not compel me to seek al Section 10 Changing Degreee of Pain My pain seems to be getting better, but improvement is slow Score and Risk Level Oswestry Sc 27 Oswestry Risk Level Severe Disability Outpatient Therapy Assessment Impairments Problems/Impairmments Palpation Tenderness,Impaired Range of Motion,Impaired Strength,Impaired Endurance, Impaired Transfers,Impaired Walking,Impaired Standing, Impaired Lifting,Impaired Household Care,Impaired Bending,Subjective C/O Pain Prognosis Rehab Potential Good Clinical Impression Consistent with Diagnosis Yes Short Term Goals Number of Weeks 2 Decrease Subjective C/O Pain Yes: 5/10 at worst Patient to be Ind w/ HEP Yes Residential Goals Number of Weeks 4-6 Decreased Palpation Tenderness Yes: 1/4 Increase Range of Motion Yes: WNL all planes Increase Strength Yes: RLE 5/5 Increase Ability to Walk Yes: 30 min without difficulty Increase Ability to Stand Yes: Improve Oswestry Score Yes: mild disability Decrease Subjective C/O Pain Yes: 2/10 at worst Outpatient Therapy Plan of Care Treatment Plan May Include Therapeutic Exercise Including Home Yes Exercise Program Manual Therapy Techniques Yes Neuromuscular Re-education Yes Therapeutic Activities to Return to Yes Previous Functional/Work Level Gait Training Yes ADL/Self Care Education Yes Mechanical Traction Yes Dry Needling Yes Thermal Modalities Yes Electrical Stimulation Yes Ultrasound/Phonophoresis Yes Iontophoresis Yes Orthotics/Bracing/Splinting Yes Massage Yes Eval/Re-Eval Yes Frequency Times per week 2 Duration Number of Weeks 4-6 Addendums This patient is a candidate for social No or vocational rehab? Patient/Guardian verbally acknowledges Yes understanding of treatment program and consents to further treatment? Patient/Guardian verbally acknowledges Yes understanding of diagnosis, prognosis and goals for treatment? Eval Complexity PT Charges 21251 - Moderate Complexity Shoulder/Elbow Eval Shoulder Objective Measurements Elbow Objective Measurements PHYSICIAN CERTIFICATION: I certify the specified therapy services for Dhiraj Sparks are required, authorized, and reviewed every 30 days.
== END 2023-08-15 16:00 | disposition home or self-care (01) ==
LOC: PT 15:00
PROVIDERS: PCP Internal Medicine; Visit Provider Internal Medicine
DX: M54.50 Low back pain, unspecified (principal)
CPT/HCPCS: 97010; 97014; 97110; 97140; 97163; 97530; G0283

== ENCOUNTER 2023-12-23 14:56 | Outpatient (CLI) | payer MEDICARE, OTHER, SELFPAY ==
[2023-12-23 14:42] LABS: Basophils # 0.1 K/mm3 (0-0.2); Basophils % 1.2 % (0.1-2.0); Eosinophils % 0.9 % (0.1-12.0); Hematocrit 50.3 % (42.0-52.0); Lymphocytes # 1.5 K/mm3 (0.7-4.5); Lymphocytes % 33.3 % (10-50); Mean Corpuscular HGB Conc 31.8 g/dL (31.8-35.4); Mean Corpuscular Hemoglobin 34.1 pg (27.0-31.2); Mean Corpuscular Volume 107.2 fl (80-94); Mean Platelet Volume 8.2 fl (7.4-10.4); Monocytes # 0.5 K/mm3 (0.1-1.0); Monocytes % 11.2 % (1.7-9.3); Neutrophils # 2.4 K/mm3 (1.8-7.8); Neutrophils % 53.4 % (37.0-80.0); Platelet Count 255 K/mm3 (142-424); Red Cell Distribution Width 13.2 % (11.5-17.5); White Blood Count 4.4 K/mm3 (4.8-10.8)
[2023-12-23 15:05] LABS: Alanine Aminotransferase 59 U/L (12-78); Albumin Level 4.3 g/dl (3.5-5.0); Albumin/Globulin Ratio 1.7 (1.1-1.8); Alkaline Phosphatase 67 U/L (38-126); Anion Gap 13.4 mEq/L (5-15); Aspartate Amino Transferase 66 U/L (17-59); Bilirubin,Total 0.9 mg/dl (0.2-1.3); Blood Urea Nitrogen 7 mg/dl (9-20); Calcium 8.9 mg/dl (8.4-10.2); Carbon Dioxide 29 mmol/L (22.0-30.0); Chloride 97 mmol/L (98-107); Cholesterol 216 mg/dl (140-200); Estimated Glomerular Filt Rate 96 ml/min (>60); GFR (African American) 116 ML/MIN (>60); Globulin 2.6 g/dL (1.3-3.2); Glucose 96 mg/dl (74-100); Potassium 4.4 mmoL/L (3.5-5.1); Sodium 135 mmol/L (136-145); Total Protein,Serum 6.9 g/dl (6.3-8.2); Triglycerides 36 mg/dl (30-150); VLDL Cholesterol 7 mg/dL (0-40)
[2023-12-23 15:17] LABS: Direct LDL Cholesterol 64.77 mg/dL (100-129)
[2023-12-23 15:25] LABS: Chol/HDL Ratio 1.6 (1-3.5); HDL Cholesterol 133 mg/dl (40-60)
[2023-12-23 15:38] LABS: Prostate Specific Ag Screen 0.9 ng/ml (0.0-4.0)
== END 2023-12-23 23:59 | disposition home or self-care (01) ==
LOC: LAB.DROPOF 14:58
PROVIDERS: PCP Internal Medicine; Visit Provider Internal Medicine
DX: Z12.5 Encounter for screening for malignant neoplasm of prostate (principal); E78.5 Hyperlipidemia, unspecified; I10 Essential (primary) hypertension; Z87.891 Personal history of nicotine dependence
CPT/HCPCS: 80053; 80061; 85025; G0103

== ENCOUNTER 2024-06-23 14:46 | Outpatient (CLI) | payer MEDICARE, OTHER, SELFPAY ==
[2024-06-23 14:40] LABS: Albumin Level 4.2 g/dl (3.5-5.0); Chloride 101 mmol/L (98-107); Sodium 130 mmol/L (136-145)
[2024-06-23 14:41] LABS: Potassium 4.4 mmoL/L (3.5-5.1)
[2024-06-23 14:43] LABS: Alanine Aminotransferase 46 U/L (12-78); Albumin/Globulin Ratio 1.7 (1.1-1.8); Anion Gap 6.4 mEq/L (5-15); Aspartate Amino Transferase 58 U/L (17-59); Blood Urea Nitrogen 6 mg/dl (9-20); Carbon Dioxide 27 mmol/L (22.0-30.0); Estimated Glomerular Filt Rate 96 ml/min (>60); GFR (African American) 116 ML/MIN (>60); Globulin 2.5 g/dL (1.3-3.2); Total Protein,Serum 6.7 g/dl (6.3-8.2)
[2024-06-23 14:44] LABS: Alkaline Phosphatase 70 U/L (38-126); Bilirubin,Total 0.7 mg/dl (0.2-1.3); Calcium 8.8 mg/dl (8.4-10.2); Cholesterol 164 mg/dl (140-200); Glucose 92 mg/dl (74-100); Triglycerides 35 mg/dl (30-150); VLDL Cholesterol 7 mg/dL (0-40)
[2024-06-23 15:10] LABS: Chol/HDL Ratio 1.3 (1-3.5); Direct LDL Cholesterol < 30.00 mg/dL (100-129); HDL Cholesterol 122 mg/dl (40-60)
== END 2024-06-23 23:59 | disposition home or self-care (01) ==
LOC: LAB.DROPOF 14:46
PROVIDERS: PCP Internal Medicine; Visit Provider Internal Medicine
DX: I10 Essential (primary) hypertension (principal); E78.5 Hyperlipidemia, unspecified
CPT/HCPCS: 80053; 80061

== ENCOUNTER 2024-12-22 16:22 | Outpatient (CLI) | payer MEDICARE, OTHER, SELFPAY ==
--- OUTSIDE RECORDS SUMMARY | 2024-12-22 08:57 | XMS_ITS | Continuity of Care Document ---
Author Name [facility] Organization [facility] Care Team Providers Care Park Maintainer Name Role Phone [facility] Unavailable Unavailable Social History Combined list of available smoking, tobacco, and other social history from [facility] and [facility] facilities. Social History Type Response Date Comment Sourc e This section is an empty social history section. [facility]
[2024-12-22 14:13] LABS: Alanine Aminotransferase 44 U/L (12-78); Albumin Level 4.4 g/dl (3.5-5.0); Albumin/Globulin Ratio 1.7 (1.1-1.8); Alkaline Phosphatase 67 U/L (38-126); Anion Gap 10.6 mEq/L (5-15); Aspartate Amino Transferase 54 U/L (17-59); Bilirubin,Total 0.7 mg/dl (0.2-1.3); Blood Urea Nitrogen 9 mg/dl (9-20); Calcium 8.6 mg/dl (8.4-10.2); Carbon Dioxide 28 mmol/L (22.0-30.0); Chloride 98 mmol/L (98-107); Cholesterol 159 mg/dl (140-200); Estimated Glomerular Filt Rate 111 ml/min (>60); GFR (African American) 135 ML/MIN (>60); Globulin 2.6 g/dL (1.3-3.2); Glucose 92 mg/dl (74-100); Potassium 4.6 mmoL/L (3.5-5.1); Sodium 132 mmol/L (136-145); Triglycerides 40 mg/dl (30-150); VLDL Cholesterol 8 mg/dL (0-40)
[2024-12-22 14:20] LABS: Chol/HDL Ratio 1.5 (1-3.5); HDL Cholesterol 108 mg/dl (40-60)
[2024-12-22 14:42] LABS: Direct LDL Cholesterol < 30.00 mg/dL (100-129)
--- OUTSIDE RECORDS SUMMARY | 2024-12-22 16:24 | XMS_ITS | Clinical Summary ---
Author Organization Healthcare Address [address] [place] [address] Care Team Providers Care Cryogenic Transport Driver Name Role Phone Elliott Morales MD Primary Care Provider [phone] Family History Medical History Relation Name Comments Other cancer Father Diabetes Mother Hypertension Mother Relation Name Status Comments Father Mother Social History Tobacco Use Types Packs/Day Years Used Date Smoking Tobacco: Every Day Alcohol Use Standard Drinks/Week Comments Yes 0 (1 standard drink = 0.6 oz pur e alcohol) Sex and Gender Information Value Date Recorded Sex Assigned at Not on file Legal Sex Male 7:50 PM EDT Gender Identity Not on file Sexual Orientation Not on file Last Filed Vital Signs Vital Sign Reading Time Taken Comments Blood Pressure - - Pulse - - Temperature - - Respiratory Rate - - Oxygen Saturation - - Inhaled Oxygen Concentration - - Weight 66.2 kg (146 lb 0.2 oz) 02/20/2015 11:30 AM EDT Height 172.7 cm (5' 8 ) 02/20/2015 11:30 AM EDT Body Mass Index 22.2 02/20/2015 11:30 AM EDT Plan of Treatment Not on file Care Teams Cryogenic Transport Driver Relationship Specialty Start Date End Date Elliott Morales MD [address] [facility] [address] [place] [address] PCP - General 11/24/20
== END 2024-12-22 23:59 | disposition home or self-care (01) ==
LOC: LAB.DROPOF 16:22
PROVIDERS: PCP Internal Medicine; Visit Provider Internal Medicine
DX: I10 Essential (primary) hypertension (principal); E78.5 Hyperlipidemia, unspecified
CPT/HCPCS: 80053; 80061

== ENCOUNTER 2025-06-23 09:55 | Outpatient (CLI) | payer MEDICARE, OTHER, SELFPAY ==
[2025-06-23 14:03] LABS: Hematocrit 45.5 % (42.0-52.0); Hemoglobin 15.2 g/dL (14.1-18.0); Immature Granulocytes % 0.2 %; Mean Corpuscular HGB Conc 33.4 g/dL (31.8-35.4); Mean Corpuscular Hemoglobin 33.4 pg (27.0-31.2); Mean Corpuscular Volume 100.0 fl (80-94); Nucleated Red Blood Cells % 0 %; Platelet Count 192 K/mm3 (142-424); Red Blood Count 4.55 M/mm3 (4.60-6.20); Red Cell Distribution Width-SD 46.9 fL; White Blood Count 4.8 K/mm3 (4.8-10.8)
[2025-06-23 14:14] LABS: Albumin Level 4.3 g/dl (3.5-5.0); Chloride 97 mmol/L (98-107)
[2025-06-23 14:15] LABS: Potassium 4.5 mmoL/L (3.5-5.1); Sodium 136 mmol/L (136-145)
[2025-06-23 14:17] LABS: Alanine Aminotransferase 42 U/L (12-78); Albumin/Globulin Ratio 1.5 (1.1-1.8); Anion Gap 13.5 mEq/L (5-15); Aspartate Amino Transferase 50 U/L (17-59); Blood Urea Nitrogen 7 mg/dl (9-20); Carbon Dioxide 30 mmol/L (22.0-30.0); Creatinine,Serum 0.70 mg/dl (0.66-1.25); Estimated Glomerular Filt Rate 111 ml/min (>60); GFR (African American) 135 ML/MIN (>60); Globulin 2.9 g/dL (1.3-3.2); Total Protein,Serum 7.2 g/dl (6.3-8.2)
[2025-06-23 14:18] LABS: Alkaline Phosphatase 64 U/L (38-126); Bilirubin,Total 0.9 mg/dl (0.2-1.3); Calcium 8.8 mg/dl (8.4-10.2); Cholesterol 126 mg/dl (140-200); Glucose 100 mg/dl (74-100); Triglycerides 39 mg/dl (30-150)
[2025-06-23 14:25] LABS: HDL Cholesterol 109 mg/dl (40-60)
== END 2025-06-23 23:59 | disposition home or self-care (01) ==
LOC: LAB.DROPOF 06-24 14:20
PROVIDERS: PCP Internal Medicine; Visit Provider Internal Medicine
DX: E78.5 Hyperlipidemia, unspecified (principal); I10 Essential (primary) hypertension; Z87.19 Personal history of other diseases of the digestive system; Z12.5 Encounter for screening for malignant neoplasm of prostate
CPT/HCPCS: 80053; 80061; 85025; G0103